=== PATIENT | male | born 1960 | race Caucasian/White ===

== ENCOUNTER 2023-03-13 07:52 | Outpatient (CLI) | payer OTHER | END 2023-03-13 07:53 | disposition home or self-care (01) | LOC: CSHCP 07:52 | PROVIDERS: ATTEND Internal Medicine Critical Care Medicine | DX: J44.9 Chronic obstructive pulmonary disease, unspecified (principal); J98.4 Other disorders of lung | CPT/HCPCS: 94060; 94664; 94726; 94729; 94760 ==